=== PATIENT | male | born 1990 | race African-American/Black ===

== ENCOUNTER 2024-07-06 11:38 | Emergency (ER) | payer MEDICAID ==
[~2024-07-06] VITALS: Ht 182.9 cm; Wt 105.0 kg
[2024-07-06 11:46] VITALS: O2SAT 98
[2024-07-06 12:16] LABS: BASOPHILS % 0.5 % (0.0-2.0); EOSINOPHILS % 0.8 % (0.0-5.0); HEMATOCRIT. 48.1 % (42.0-52.0); HEMOGLOBIN. 15.7 g/dL (14.0-18.0); LYMPHOCYTES % 8.6 % (20.0-50.0); MEAN CORPUSCULAR HEMOGLOBIN 29.7 pg (28.0-32.0); MEAN CORPUSCULAR HGB CONC 32.6 g/dL (31.0-37.0); MEAN PLATELET VOLUME 8.3 fl (7.4-10.4); MONOCYTES % 4.5 % (2.0-8.0); NEUTROPHILS % 85.6 % (40.0-76.0); PLATELET 338 x1000/uL (130-400); RED BLOOD CELL COUNT 5.29 mill/uL (4.7-6.1); RED CELL DISTRIBUTION WIDTH 14.7 % (11.6-14.6); WHITE BLOOD COUNT 15.5 x1000/uL (4.5-11.0)
[2024-07-06 12:19] VITALS: TEMP 36.89184; O2SAT 98
[2024-07-06 12:25] VITALS: BP 135/85; PULSE 69; RESP 16
[2024-07-06 12:25] LABS: CHLORIDE 103 mEq/L (98-107); POTASSIUM 3.5 mEq/L (3.5-5.1); SODIUM 138 mEq/L (136-145)
[2024-07-06] MEDS: ONDANSETRON HCL 4MG/2ML INJ IV STA (12:25)
[2024-07-06] MEDS: MORPHINE SULFATE 4 MG/ML INJ (FOR IV/IM USE) IV STA (12:25)
[2024-07-06] MEDS: FAMOTIDINE 20MG/2ML VIAL IV STA (12:25)
[2024-07-06 12:26] LABS: CARBON DIOXIDE 31 mEq/L (21-32)
[2024-07-06 12:27] LABS: CALCIUM 9.9 mg/dL (8.7-10.4)
[2024-07-06 12:31] LABS: CREATININE 1.3 mg/dL (0.6-1.3); GLUCOSE 120 mg/dL (70-105)
[2024-07-06 12:32] LABS: UREA NITROGEN BLOOD 9 mg/dL (9-23)
[2024-07-06 12:33] LABS: PROTHROMBIN TIME 11.1 sec (9.6-11.0)
[2024-07-06] MEDS: SODIUM CHLORIDE 0.9% 1,000 ML IV ONE (12:43)
[2024-07-06] MEDS ORDERED: MORPHINE SULFATE 4 MG/ML INJ (FOR IV/IM USE) IV ONE (14:00)
== END 2024-07-06 20:08 | disposition left against medical advice (07) ==
LOC: ER 11:38 → EDBEDREQTM 14:05 → EDBEDREQ 14:05 → ER 20:08
DX: R10.9 Unspecified abdominal pain (principal); Z87.19 Personal history of other diseases of the digestive system
CPT/HCPCS: 80048; 83690; 85025; 85610; 36415; 74176; 96361; 96374; 96375; 99285; J3490; J2405; J2270; J7030; Z7610